=== PATIENT | male | born 2000 | race African-American/Black ===

== ENCOUNTER 2021-01-15 12:57 | Outpatient (REF) | payer OTHER, SELFPAY | END 2021-01-15 12:58 | disposition home or self-care (01) | LOC: HO.LAB 12:57 | PROVIDERS: Visit Provider Internal Medicine | DX: Z20.822 Contact with and (suspected) exposure to COVID-19 (principal) | CPT/HCPCS: C9803; U0003; U0005 ==

== ENCOUNTER 2023-10-25 14:00 | Emergency (ER) | payer OTHER, SELFPAY ==
--- NOTE | ~2023-10-25 | XR_ITS ---
EXAMINATION: XR KNEE, LEFT CLINICAL INFORMATION: Pain and swelling COMPARISON: None available. TECHNIQUE: Four views of the left knee. FINDINGS: No fracture or joint effusion. Alignment is anatomic. Joint spaces are maintained. No abnormal soft tissue calcification. XR/XR knee LT 3V IMPRESSION: Normal left knee.
--- NOTE | 2023-10-25 14:23 | ED_ITS ---
HPI - Extremity Injury (Lower) General Chief Complaint: Extremity Injury, Lower Stated Complaint: L knee pain Time Seen by Provider: 10/25/23 15:40 Source: patient, RN notes reviewed and old records reviewed Mode of arrival: ambulatory History of Present Illness ED Provider: Mary Kate Velasquez PA-C HPI Narrative: 23-year-old male with no significant past medical history presenting to the ED complaining of left knee pain s/p jumping up landing football yesterday. Reports pain with ambulation. Denies injury to other area Related Data Previous Rx's ?Medication ?Instructions ?Recorded naproxen 500 mg tablet 500 mg PO BID PRN pain 10 days #20 10/25/23 tabs Allergies Allergy/AdvReac Type Severity Reaction Status Date / Time No Known Drug Allergies Allergy Mild NONE Verified 10/25/23 14:26 [NO KNOWN DRUG ALLERGIES] Review of Systems Review of Systems: Constitutional: No Fever, No Chills ENT/Mouth: No Ear Pain, No Nasal Congestion, No sore throat, No Rhinorrhea, No Swallowing Difficulty Cardiovascular: No Chest Pain, No SOB Respiratory: No Cough, No Sputum, No Wheezing Gastrointestinal: No Nausea, No Vomiting, No Abdominal pain Musculoskeletal: + joint pain, No Myalgias, + Joint Swelling Skin: No Skin Lesions, No rash Neuro: No Weakness, No Numbness, No Paresthesias Yes all other systems are reviewed and are negative Constitutional: Constitutional: Reports as per [facility] Past Medical History Attestation statement: The following information was validated with the patient. Source: old records reviewed Physical Exam Vital Signs: Vital Signs: Last Vital Signs Temp 97 F 10/25/23 14:24 Pulse 79 10/25/23 14:24 Resp 18 10/25/23 14:24 BP 112/79 10/25/23 14:24 Pulse Ox 100 10/25/23 14:24 O2 Del Method Room Air 10/25/23 14:24 BMI result Body Mass Index 23.7 Const: General: cooperative, healthy appearing and no acute distress Orientation/consciousness: patient oriented x3 Limitations: no limitations HEENT: Head: Yes normal to inspection and Yes atraumatic Ears: hearing grossly normal bilaterally General nose exam: Normal external nose present Face and sinus: Yes normal facial exam Eyes: General: appearance normal, both eyes and all related structures EOM: EOMs intact bilaterally Neck: Neck: Yes normal visual inspection and Yes no meningeal signs Resp: Effort & Inspection: normal respiratory effort and no respiratory distress Cardio: Rate: regular rate Skin: Rashes: no rashes Wounds: no wounds Neuro: General: patient oriented x3, tone normal and no meningeal signs Cranial nerves: Yes CN's II-XII intact bilaterally Gait exam (Neuro): Normal gait present Extrem: Other: Left knee with appreciable swelling. Diffusely tender to palpation. Limited full flexion and extension secondary to pain. No calf tenderness. Neurovascularly intact distally. Course Course Course Narrative: This is a Rapid Medical Exam performed in triage by Mary Kate Velasquez PA-C. Full HPI, ROS and PE to be performed by primary ED provider. 23 year-old M w/no sig PMHx presenting to the ED c/o L knee pain x yesterday s/p playing football and jumping up/landing wrong PE: L knee with swelling, ambulating w/ caution Plan: XR ordered -[id number]--x-ray unremarkable. Lars wrap applied Results discussed with patient including worrisome signs and symptoms and strict return precautions, and when to return to the emergency department. They verbalized understanding and feel safe for discharge at this time. Medical Decision Making Medical Decision Making MDM Narrative: 23-year-old male with no significant past medical history presenting to the ED complaining of left knee pain s/p jumping up landing football yesterday. On exam vital signs stable, NAD, nontoxic appearing physical exam as noted above. Concern for tendon/ligamental or meniscal injury vs fracture. Low suspicion for dislocation Plan: X-ray Please refer to course for remaining clinical decision making, interpretation of labs/imaging results, and discussions with consultants and/or family members. Differential Diagnosis Differential Diagnoses: The differential diagnosis associated with the presentation includes As above Independent Interpretation I performed an independent interpretation of an: Plain X-Ray (My interpretation appears unremarkable) Radiology Impression Discussion of test interpretation with radiology: I have reviewed the radiologist's reading. External Record Review External record reviewed: Inpatient record, Office record, Outpatient record, Prior outpatient labs, Prior outpatient radiology, Primary care record and Outside ED record Tests considered The following testing was considered but not selected: As above Prescription Management I considered prescription management with: Pain Medication Procedures Orthopedic Splinting/Casting Injury #1: Side: left Lower Extremity Injury Location: knee Lower Extremity Immobilizer: Lars wrap Discharge Plan Discharge Clinical Impression: Acute knee pain Patient Disposition: Home, Self-Care Instructions: Knee Pain (ED) Additional Instructions: Your x-rays unremarkable Wear Lars wrap for comfort and stability. Ice and elevate Take Tylenol and naproxen. Take naproxen with food Follow-up with your doctor and orthopedics as needed Prescriptions: New naproxen 500 mg tablet 500 mg PO BID PRN (Reason: pain) 10 Days Qty: 20 0RF Referrals: [facility] [Provider Group] Stand Alone Forms: Work/School Release Print Language: [place]
[2023-10-25 14:24] VITALS: BP 112/79; PULSE 79; RESP 18; TEMP 36.1; O2SAT 100; BMI 23.7
[2023-10-25 15:54] VITALS: BP 112/79; PULSE 79; RESP 18; TEMP 36.1; O2SAT 100
== END 2023-10-25 15:55 | disposition home or self-care (01) ==
PROVIDERS: Emergency Provider Emergency Medicine
DX: S89.92XA Unspecified injury of left lower leg, initial encounter (principal); M25.562 Pain in left knee; W01.0XXA Fall on same level from slipping, tripping and stumbling without subsequent striking against object, initial encounter; Y93.61 Activity, american tackle football; Y93.9 Activity, unspecified; Y92.321 Football field as the place of occurrence of the external cause; Y99.8 Other external cause status
CPT/HCPCS: 29505; 73562; 99282; 99283; 99284